=== PATIENT | female | born 1970 | race African-American/Black ===

== ENCOUNTER 2017-08-14 07:41 | Outpatient (CLI) | payer OTHER ==
--- NOTE | 2017-08-14 16:17 | Mammography Report ---
BILATERAL DIGITAL SCREENING MAMMOGRAM with CAD: 08/14/17 07:41:00 CLINICAL: Routine screening. COMPARISON:05/17/16 FINDINGS: The breasts are heterogeneously dense, which may obscure small masses.A left asymmetry on the MLO view requires additional imaging. No architectural distortion or suspicious calcifications. The right breast is negative. IMPRESSION: Left asymmetry requiring further workup. BI-RADS CATEGORY: 0 -- Additional Imaging Evaluation Required RECOMMENDATION: Recall for left MLO spot compression view and left breast ultrasound. ACR BI-RADS MAMMOGRAPHIC CODES: 0 = Needs additional imaging evaluation; 1 = Negative; 2 = Benign; 3 = Probably benign; 4 = Suspicious; 5 = Malignant; 6 = Known biopsy-proven malignancy COMMENT: 1. Dense breast tissue, i.e., adenosis, fibrocystic changes, etc., may obscure an underlying neoplasm. 2. Approximately 10% of cancers are not detected with mammography. 3. A negative mammography report should not delay biopsy if a clinically suspicious mass is present. COMMENT: Patient follow-up letters are generated via our [employer] application.
== END 2017-08-14 07:42 | disposition home or self-care (01) ==
LOC: MAMMO 07:41
PROVIDERS: ATTEND Internal Medicine
DX: Z12.31 Encounter for screening mammogram for malignant neoplasm of breast (principal)
CPT/HCPCS: 77067

== ENCOUNTER 2017-09-09 08:37 | Outpatient (CLI) | payer OTHER ==
--- NOTE | 2017-09-09 10:35 | Mammography Report ---
LEFT DIGITAL DIAGNOSTIC MAMMOGRAM : 09/09/17 08:37:00 CLINICAL: Recalled for asymmetry. COMPARISON:08/14/17 screening FINDINGS: ML and spot compression MLO views were performed and are negative. IMPRESSION: Negative Mammogram. BI-RADS CATEGORY: 1 -- Negative RECOMMENDATION: Routine mammographic screening in one year. ACR BI-RADS MAMMOGRAPHIC CODES: 0 = Needs additional imaging evaluation; 1 = Negative; 2 = Benign; 3 = Probably benign; 4 = Suspicious; 5 = Malignant; 6 = Known biopsy-proven malignancy COMMENT: 1. Dense breast tissue, i.e., adenosis, fibrocystic changes, etc., may obscure an underlying neoplasm. 2. Approximately 10% of cancers are not detected with mammography. 3. A negative mammography report should not delay biopsy if a clinically suspicious mass is present. COMMENT: Patient follow-up letters are generated via our [employer] application.
== END 2017-09-09 08:38 | disposition home or self-care (01) ==
LOC: MAMMO 08:37
PROVIDERS: ATTEND Internal Medicine
DX: R92.8 Other abnormal and inconclusive findings on diagnostic imaging of breast (principal)